=== PATIENT | female | born 1980 | race Caucasian/White ===

== ENCOUNTER 2018-04-30 13:43 | Inpatient (IN) ==
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
[2018-04-30 14:23] LABS: Basophils % 0.2 %; Hemoglobin 14.5 g/dL (11.5-15.4); Immature Granulocytes % 0.6 % (0-4); Lymphocytes # 1.6 K/mcL (0.6-4.6); Lymphocytes % 7.8 %; Mean Corpuscular HGB Conc 34.5 g/dL (31.6-35.5); Mean Corpuscular Hemoglobin 30.5 pg (28.0-33.3); Mean Corpuscular Volume 88.4 fL (83.0-100.0); Mean Platelet Volume 10.6 fL (9.4-12.4); Monocytes # 1.4 K/mcL (0.0-1.3); Monocytes % 6.7 %; Neutrophils # 17.8 K/mcL (1.6-8.9); Platelet Count 360 K/mcL (140-400); Red Blood Count 4.75 M/mcL (3.82-4.97); Red Cell Distribution Width 11.9 % (11.5-14.5); Segmented Neutrophils % 84.7 %
[2018-04-30 15:53] LABS: Acetaminophen < 10 mcg/mL (10-20); BUN/Creatinine Ratio 25 (6-26); Blood Urea Nitrogen 14 mg/dL (6-20); Calcium 10.2 mg/dL (8.6-10.3); Carbon Dioxide 20 mEq/L (23-29); Chloride 106 mEq/L (98-107); Ethanol < 10 mg/dL (Less than 10); Glucose 139 mg/dL (70-105); Osmolality,Calculated 285 (280-300); Potassium 3.3 mEq/L (3.5-5.1); Salicylate < 2.5 mg/dL (15.0-30.0); Sodium 136 mEq/L (136-145); eGFR For Non-African Americans > 60 (> 60)
[2018-04-30 16:56] LABS: Bilirubin,Urine Negative (Negative); Blood,Urine Negative (Negative); Clarity,Urine Clear (Clear); Color,Urine Yellow (Yellow); Glucose,Urine (UA) 100 mg/dL (Normal); Ketones,Urine Negative (Negative); Leukocyte Esterase,Urine Negative (Negative); Nitrite,Urine Negative (Negative); Protein,Urine Negative (Neg-Trace); Specific Gravity,Urine 1.021 (1.010-1.025); Urobilinogen,Urine Normal (Normal)
[2018-04-30 17:16] LABS: Amphetamine Screen,Urine Negative ng/mL (Cutoff=1000); Barbiturate Screen,Urine Negative ng/mL (Cutoff=200); Benzodiazepines Screen,Urine Negative ng/mL (Cutoff=200); Cannabinoid Screen,Urine Positive ng/mL (Cutoff = 50); Cocaine Screen,Urine Negative ng/mL (Cutoff= 300); Opiate Screen,Urine Negative ng/mL (Cutoff=300); Phencyclidine Screen,Urine Negative ng/mL (Cutoff=25)
[2018-04-30] MEDS ORDERED: Haloperidol Lactate 5 MG/ML VIAL IM ONE (17:45)
[2018-04-30] MEDS ORDERED: *HR* LORazepam 2 MG/ML VIAL IM ONE (17:45)
[2018-04-30] MEDS ORDERED: Ziprasidone injection 20 MG/ML VIAL IM ONE (17:59)
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
[2018-04-30] MEDS ORDERED: Mag Hydrox/Al Hydrox/Simeth 30 ML UDC PO PRN (23:22)
[2018-04-30] MEDS ORDERED: *HR* LORazepam 2 MG/ML VIAL IM PRN (23:22)
[2018-04-30] MEDS ORDERED: MOM Conc 10 ML UD.LIQ PO PRN (23:22)
[2018-04-30] MEDS ORDERED: Haloperidol Lactate 5 MG/ML VIAL IM PRN (23:22)
[2018-04-30 23:54] LABS: Thyroid Stimulating Hormone 0.678 mcIU/mL (0.340-5.600)
--- NOTE | 2018-05-01 10:47 | Psychiatry History & Physical ---
Date of Encounter: 05/01/18 Time of Encounter: 09:45 History of Present Illness Patient Stated Chief Complaint: Acute psychosis, manic episode, altered mental status Medicare Admission Attestation: For traditional Medicare patients the provided hospital inpatient services are reasonable and necessary and in the case of services not specified as inpatient-only under 42 CFR 419.22 (n), that they are appropriately provided as inpatient services in accordance 42 CFR 412.3. For Critical Access Hospital the patient may reasonably be expected to be discharged or transferred to a hospital within 96 hours after admission to the Critical Access Hospital. Admitted From: Emergency Dept History of Present Illness: Ms. Li is a 37 year old female admitted from the emergency department for evaluation off manic and delusional behavior. Patient was brought in by police when she was asking for directions and was feeling lost. Her speech was disorganized and making comments of delusional content she said that she is in the [place]. Information available at this time. Minimal and and confusing. Nursing staff was able to obtain records from [facility]. 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 She was on the hospital in December 2017 and has not been followed up as outpatient and currently on no medication. Patient was minimally cooperative, her speech was disorganized with flight of ideas and delusional content and poor history. UDS was positive for THC. Past Med Surg Social Fam HX - Past Medical History Medical history: thyroid disease, other - Past Psychiatric History Psychiatric history: Reports: bipolar, previous psychiatric hospitalization Past psychiatric history details: Hospitalization at [facility] showing 2017 - Past Surgical History Surgical History: orthopedic, other - Social History Smoking Status: Current every day smoker Smokeless Tobacco Status: No Alcohol use: none Drug use: marijuana - Family History Mother Living Status: Still Living Hx Family Cardiac Disorders: Yes Hx Family Endocrine Disorder: Yes Father Living Status: Still Living Hx Family GI Disorders: Yes Medications & Allergies DULoxetine [Cymbalta] 30 mg PO DAILY 11/08/17 [History] Divalproex (24 HR) [Depakote ER (24 HR)] 250 mg PO HS 11/08/17 [History] Allergy/AdvReac Type Severity Reaction Status Date / Time No Known Allergies Allergy Verified 04/29/18 18:54 Review of Systems Psychiatric: Reports: confusion, mood swings, other (Manic episode) Exam - HEENT Head exam IM: Present: atraumatic Eye exam IM: Present: EOMI, normal appearance, PERRL ENT exam IM: Present: normal exam - Neurological Neurological exam: Present: CN II-XII intact - Respiratory Respiratory exam IM: Present: CTAB - GI/Abdominal GI/Abdominal exam IM: Present: normal bowel sounds, soft. Absent: tenderness - Extremities Extremities exam IM: Present: full ROM - Skin Skin exam IM: Present: dry, warm - Constitutional Vitals: Temp Pulse Resp BP Pulse Ox 98.4 F 68 16 81/42 99 05/01/18 00:40 05/01/18 00:40 05/01/18 00:40 05/01/18 00:40 04/30/18 14:12 General appearance: age & developmentally appropriate, well-nourished, unkempt, disheveled, bizarre, thin - Musculoskeletal Gait: normal Station: relaxed Strength & Tone: normal for patient - Psychiatric Patient Orientation: Yes Person, Yes Time, Yes Place Level of alertness: Alert Behavior: calm, cooperative, distractible, dramatic Psychomotor activity: Normal Eye Contact: Minimal Contact Mood Description: Euthymic/stable, Labile Affect description: congruent with mood, labile Speech Volume: Normal Speech pattern: disorganized, garbled Language & Vocabulary: consistent with education, limited Thought Process: Linear, Goal Oriented, Disorganized, Racing Thought Content: No Suicidal ideation, No Homicidal ideation, No Overt delusions, Yes Paranoid delusion Perceptual Disturbances: No Auditory hallucinations, No Visual hallucinations Attention Span Ability: Capable of Focused Attention Memory Description: Grossly Intact Patient Reliability: Questionable Historian Fund of knowledge: Yes abstraction ability, Yes average, Yes aware of current events Intelligence Estimate: Average Judgment: Limited Insight: Partial Results - Drug Levels and Toxicology Drug Levels and Toxicology: Drug Levels and Toxicity 04/30/18 04/30/18 15:21 16:51 Urine Opiates Screen Negative Acetaminophen < 10 L Ur Barbiturates Screen Negative Ur Phencyclidine Scrn Negative Ur Amphetamines Screen Negative U Benzodiazepines Scrn Negative Urine Cocaine Screen Negative U Marijuana (THC) Screen Positive H Ethyl Alcohol < 10 - Labs Labs: Laboratory Last Values WBC 21.0 K/mcL (4.3-11.1) H 04/30/18 14:14 RBC 4.75 M/mcL (3.82-4.97) 04/30/18 14:14 Hgb 14.5 g/dL (11.5-15.4) 04/30/18 14:14 Hct 42.0 % (35.3-44.9) 04/30/18 14:14 MCV 88.4 fL (83.0-100.0) 04/30/18 14:14 MCH 30.5 pg (28.0-33.3) 04/30/18 14:14 MCHC 34.5 g/dL (31.6-35.5) 04/30/18 14:14 RDW 11.9 % (11.5-14.5) 04/30/18 14:14 Plt Count 360 K/mcL (140-400) 04/30/18 14:14 MPV 10.6 fL (9.4-12.4) 04/30/18 14:14 Immature Gran % 0.6 % (0-4) 04/30/18 14:14 Seg Neutrophils % 84.7 % 04/30/18 14:14 Lymphocytes % 7.8 % 04/30/18 14:14 Monocytes % 6.7 % 04/30/18 14:14 Eosinophils % 0.0 % 04/30/18 14:14 Basophils % 0.2 % 04/30/18 14:14 Neutrophils # 17.8 K/mcL (1.6-8.9) H 04/30/18 14:14 Lymphocytes # 1.6 K/mcL (0.6-4.6) 04/30/18 14:14 Monocytes # 1.4 K/mcL (0.0-1.3) H 04/30/18 14:14 Eosinophils # 0.0 K/mcL (0.0-0.6) 04/30/18 14:14 Basophils # 0.0 K/mcL (0.0-0.2) 04/30/18 14:14 Sodium 136 mEq/L (136-145) 04/30/18 15:21 Potassium 3.3 mEq/L (3.5-5.1) L 04/30/18 15:21 Chloride 106 mEq/L (98-107) 04/30/18 15:21 Carbon Dioxide 20 mEq/L (23-29) L 04/30/18 15:21 BUN 14 mg/dL (6-20) 04/30/18 15:21 Creatinine 0.57 mg/dL (0.60-1.20) L 04/30/18 15:21 Est GFR ( Amer) > 60 (> 60) 04/30/18 15:21 Est GFR (Non-Af Amer) > 60 (> 60) 04/30/18 15:21 BUN/Creatinine Ratio 25 (6-26) 04/30/18 15:21 Glucose 139 mg/dL (70-105) H 04/30/18 15:21 Calculated Osmolality 285 (280-300) 04/30/18 15:21 Calcium 10.2 mg/dL (8.6-10.3) 04/30/18 15:21 TSH 0.678 mcIU/mL (0.340-5.600) 04/30/18 15:21 Urine Color Yellow (Yellow) 04/30/18 16:51 Urine Clarity Clear (Clear) 04/30/18 16:51 Urine pH 6.0 pH Units (5.0-8.0) 04/30/18 16:51 Ur Specific Campbell 1.021 (1.010-1.025) 04/30/18 16:51 Urine Protein Negative mg/dL (Neg-Trace) 04/30/18 16:51 Urine Glucose (UA) 100 mg/dL (Normal) H 04/30/18 16:51 Urine Ketones Negative mg/dL (Negative) 04/30/18 16:51 Urine Blood Negative (Negative) 04/30/18 16:51 Urine Nitrite Negative (Negative) 04/30/18 16:51 Urine Bilirubin Negative (Negative) 04/30/18 16:51 Urine Urobilinogen Normal mg/dL (Normal) 04/30/18 16:51 Ur Leukocyte Esterase Negative (Negative) 04/30/18 16:51 Salicylates < 2.5 mg/dL (15.0-30.0) L 04/30/18 15:21 Urine Opiates Screen Negative ng/mL (Evkhhj=485) 04/30/18 16:51 Acetaminophen < 10 mcg/mL (10-20) L 04/30/18 15:21 Ur Barbiturates Screen Negative ng/mL (Yszmhr=498) 04/30/18 16:51 Ur Phencyclidine Scrn Negative ng/mL (Cutoff=25) 04/30/18 16:51 Ur Amphetamines Screen Negative ng/mL (Yvkmjn=0767) 04/30/18 16:51 U Benzodiazepines Scrn Negative ng/mL (Jhqxjq=371) 04/30/18 16:51 Urine Cocaine Screen Negative ng/mL (Cutoff= 300) 04/30/18 16:51 U Marijuana (THC) Screen Positive ng/mL (Cutoff = 50) H 04/30/18 16:51 Ur Drug Screen Interp See Below 04/30/18 16:51 Ethyl Alcohol < 10 mg/dL (Less than 10) 04/30/18 15:21 Specimen Rejected Hemolyzed 04/30/18 14:53 Assessment and Plan (1) Bipolar disorder, manic, moderate Current visit: No Status: Acute Plan: Admit inpatient for safety and stabilization, Close observation, Suicide Precautions per unit protocol, Encourage participation in unit milieu, Group Therapy, Monitor sleep, Monitor appetite Risks, benefits, side effects, alternatives discussed w/pt: No (Patient refused taking medication) Patient agreeable to treatment: No Estimated Length of Stay (Days): 7
[2018-05-01] MEDS: Nicotine 21 MG PATCH.TD24 TD SCH (13:25)
[2018-05-01] MEDS: *HR* LORazepam 1 MG TABLET PO PRN (18:38)
[2018-05-01] MEDS: traZODone 50 MG TABLET PO PRN (20:29)
--- NOTE | 2018-05-01 22:53 | Internal Medicine Consult Note ---
Addendum entered and electronically signed by Barry Shin MD 05/02/18 20:33: I saw and evaluated the patient. I reviewed the nurse practitioner's note, performed my own physical examination and agree with findings and plan as documented in the nurse practitioners note. Patient seen and examined on 05/02/18. Re-evaluated this morning. Chest pain resolved. Has cough, but lung sounds clear. If symptoms continue, could consider chest x-ray. Patient had no further issues or concerns. Original Note: Date of Encounter: 05/01/18 Time of Encounter: 22:15 - Assessment and plan (1) Chest pain Current Visit: Yes Status: Acute Assessment and plan: Chest pain currently resolved. EKG and troponin ordered. Please call with any new problems or concerns. Qualifiers: Chest pain type: unspecified Qualified Code(s): R07.9 - Chest pain, unspecified - Time Spent With Patient Total time spent is greater than 50% in coordination of care (as documented) at patient's floor/unit and/or counseling patient: Internal Medicine - CN: HPI - Data of Consult Consult date: 05/01/18 Requesting Physician: Christopher Arriaga MD - Consult Narrative Reason for consult: Chest Pain History of present illness: Ms. Li is a 37 year old female currently admitted to [facility] Psychiatric unit. Consulted by primary team due to patient complaining of chest pain that has since resolved. Patient was sleeping upon my arrival to the unit and had to be awaken by nurse. Patient reports 2 hour duration of centralized "pressure like stabbing" chest pain radiating to her left arm that occurred earlier today. Pain was accompanied by nausea and one episode of vomiting. Denies shortness of breath or diaphoresis. States she has had similar episodes in the past, thinks it was related to angina and relieved with nitroglycerin though she states she has not had her nitroglycerin medication for a very long time. Last similar episode was around 3 months ago which resolved on its own as it did today. Past Med Surg Social Fam HX - Past Medical History Medical history: thyroid disease, other Additional medical history: PTSD, Hashimotos, Fibromyalgia Psychiatric history: bipolar, previous psychiatric hospitalization - Past Surgical History Surgical History: orthopedic, other Additional surgical history: D & C, removed lump from left breast. - Social History Smoking Status: Current every day smoker Smokeless Tobacco Status: No Alcohol use: none Drug use: marijuana - Family History Mother Living Status: Still Living Hx Family Cardiac Disorders: Yes Hx Family Endocrine Disorder: Yes Father Living Status: Still Living Hx Family GI Disorders: Yes Internal Medicine - CN: Meds DULoxetine [Cymbalta] 30 mg PO DAILY 11/08/17 [History] Divalproex (24 HR) [Depakote ER (24 HR)] 250 mg PO HS 11/08/17 [History] Allergy/AdvReac Type Severity Reaction Status Date / Time No Known Allergies Allergy Verified 04/29/18 18:54 Hospitalist - CN: Exam - Constitutional Vitals: Temp Pulse Resp BP Pulse Ox 97.8 F 88 18 111/73 97 05/01/18 21:08 05/01/18 21:08 05/01/18 21:08 05/01/18 21:08 05/01/18 09:00 Exam: General: Drowsy. Cooperative. Cardiovascular:Normal S1 & S2, no rubs, murmurs or gallops. No JVD. Pulse regular. Lungs:Normal breath sounds, no wheezes or crackles. Internal Medicine - CN: Reslt - Labs CBC & Chem 7: 04/30/18 14:14 04/30/18 15:21 Consult Discharge Plan - Plan Referrals: NONE,PCP [Primary Care Provider] -
[2018-05-02] MEDS: Nicotine 21 MG PATCH.TD24 TD SCH (08:26)
--- NOTE | 2018-05-02 11:37 | Internal Med Progress Note ---
Hospitalist Progress Note - Encounter Date of Encounter: 05/02/18 Time of Encounter: 11:36 - Subjective Interval History: Pt complaining of dry mouth. She denies CP SOB, fever, chills, N/V or diarrhea. She denies abdominal pain. - Exam Vitals: Temp Pulse Resp BP Pulse Ox 98.3 F 78 16 102/69 96 05/02/18 09:00 05/02/18 09:00 05/02/18 09:00 05/02/18 09:00 05/02/18 09:00 Exam: General: Drowsy. Cooperative. HEENT: Head normocephalic, ears clear TPM and visible cone of light, oral mucosa pink and moist. Cardiovascular:Normal S1 & S2, no rubs, murmurs or gallops. No JVD. Pulse regular. Lungs:Normal breath sounds, no wheezes or crackles. Abdomen: soft non-tender, no-distended, normal bowel sounds. Extremity: No pain, edema, or rash. Skin: Warm, dry, no mass or bruises. - Assessment and Plan (1) Chest pain Current Visit: Yes Status: Acute Assessment and Plan: Chest pain currently resolved. EKG and troponin ordered. Please call with any new problems or concerns. Will follow as needed. (2) Leukocytosis Current Visit: Yes Status: Acute Assessment and Plan: Pt's blood was hemolyzed. Repeat CBC showing WBC 8.5. No indication for antibiotic. (3) Hypokalemia Current Visit: Yes Status: Acute Assessment and Plan: Replaced and corrected. DVT Prophylaxis: Pt ambulatory - Summary of Assessment and Plan Summary of Assessment and Plan: Ms. Li is a 37 year old female currently admitted to [facility] Psychiatric unit. Consulted by primary team due to patient complaining of chest pain that has since resolved. Patient was sleeping upon my arrival to the unit and had to be awaken by nurse. Patient reports 2 hour duration of centralized "pressure like stabbing" chest pain radiating to her left arm that occurred earlier today. Pain was accompanied by nausea and one episode of vomiting. Denies shortness of breath or diaphoresis. States she has had similar episodes in the past, thinks it was related to angina and relieved with nitroglycerin though she states she has not had her nitroglycerin medication for a very long time. Last similar episode was around 3 months ago which resolved on its own as it did today. - Time Spent with Patient Total time spent is greater than 50% in coordination of care (as documented) at patient's floor/unit and/or counseling patient: less than 15 minutes Plan of Care Discussed with: patient Internal Medicine: Result - Labs CBC & Chem 7: 05/02/18 13:23 05/02/18 16:09 Labs: Cardiac Enzymes 05/01/18 Range/Units 23:30 Troponin I < 0.03 (< 0.04) ng/mL - VTE Reasons for not Prescribing Prophylaxis: Treatment not Indicated - Low risk for VTE Consult Discharge Plan - Plan Referrals: [facility] [Outside] - 05/13/18 10:30 am (The above appointment is with the nurse, Amirah. You will also see Charisma Contreras for outpatient psychiatric assessment and medication management services on 05/19/2018 at 9:20 AM.) Dorene Baker D.O. [Non-Partnered Physician] - 05/09/18 2:30 pm (The above appointment is with Dr. Baker for neurology follow-up.) (1) Chest pain Qualifiers: Chest pain type: unspecified Qualified Code(s): R07.9 - Chest pain, unspecified
[2018-05-02] MEDS: Acetaminophen 325 MG TABLET PO PRN ×2 (12:04→20:38)
[2018-05-02] MEDS ORDERED: *HR* Promethazine 25 MG/ML VIAL IM ONE (12:31)
--- NOTE | 2018-05-02 13:05 | Psychiatry Progress Note ---
Date of Encounter: 05/02/18 Time of Encounter: 13:00 Subjective Interval history: ID the patient's a 37-year-old woman. Chief complaint: I have a terrible headache and I am throwing up. History of present illness: The patient was seen when having a migraine headache. She laid on the couch the office and had the lights turned down and proceeded to spit in 2 or attempt to throw up into a trash can. She reported terrible migraine headaches and reports previous treatment. This is noted in the outside records which I reviewed. She has a Dr. Prince at [facility] who is her headache and migraine specialist. The patient did not want to be on sedating medicine she said this is the reason that she has stopped Depakote and Seroquel the patient has stated that she wants a medicine that will help her but that she does not want to be too sedating. The patient will be treated with Phenergan IM today and efforts to review the records and trying to nonsedating medicine for this. I reviewed both the prior history of posttraumatic stress disorder and bipolar disorder as noted by one psychiatrist in 2016. 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 The patient clearly had neurologic findings consistent with that. However this may not explain her current presentation. The patient has a common-law and we will attempt to contact her and maybe hold family meeting to identify the patient's diagnosis and treatment plan options. It appears the patient's been noncompliant with treatment or intolerant of it. Review of Systems Constitutional: Reports: weight change Eyes: Reports: vision change Ears, Nose, Throat: Reports: throat pain Cardiovascular: Reports: chest pain Respiratory: Reports: sputum production Gastrointestinal: Reports: nausea, vomiting Genitourinary male: Reports: urgency Genitourinary female: Reports: urgency Musculoskeletal: Reports: myalgia Neurological: Reports: headache Psychiatric: Reports: depression, abnormal sleep pattern, suicidal ideation, confusion, mood swings, other (Manic episode) Endocrine: Reports: fatigue Results - Vital Signs Vital Signs: Temp Pulse Resp BP Pulse Ox 98.3 F 78 16 102/69 96 05/02/18 09:00 05/02/18 09:00 05/02/18 09:00 05/02/18 09:00 05/02/18 09:00 - Labs Labs: Laboratory Results - last 24 hr 05/01/18 23:30 Troponin I < 0.03 Assessment and Plan (1) Migraine headache Current visit: Yes Status: Acute Plan: Continue hospitalization, Close observation, Monitor appetite Risks, benefits, side effects, alternatives discussed w/pt: Yes Patient agreeable to treatment: Yes Qualifiers: Migraine type: abdominal Intractability: not intractable Qualified Code(s): G43.D0 - Abdominal migraine, not intractable (2) Bipolar disorder, manic, moderate Current visit: No Status: Acute Plan: Continue hospitalization, Close observation, Suicide Precautions per unit protocol, Encourage participation in unit milieu, Group Therapy Risks, benefits, side effects, alternatives discussed w/pt: No (Patient refused taking medication) Patient agreeable to treatment: No (3) Chronic post-traumatic stress disorder (PTSD) Current visit: No Status: Acute Plan: Continue hospitalization, Close observation, Suicide Precautions per unit protocol, Encourage participation in unit milieu, Family/Supportive other meeting Risks, benefits, side effects, alternatives discussed w/pt: Yes Patient agreeable to treatment: Yes (4) History of Domenic thyroiditis Current visit: No Status: Acute Plan: Continue hospitalization, Other Risks, benefits, side effects, alternatives discussed w/pt: Yes Patient agreeable to treatment: Yes Consult Discharge Plan - Plan Referrals: NONE,PCP [Primary Care Provider] - Psychiatry Exam - Constitutional Vitals: Temp Pulse Resp BP Pulse Ox 98.3 F 78 16 102/69 96 05/02/18 09:00 05/02/18 09:00 05/02/18 09:00 05/02/18 09:00 05/02/18 09:00 General appearance: unkempt, disheveled, malodorous - Musculoskeletal Gait: slow Station: stooped Strength & Tone: normal for patient - Psychiatric Patient Orientation: Yes Person, Yes Time, Yes Place Level of alertness: Alert Behavior: calm, dramatic Psychomotor activity: Slowed Eye Contact: Minimal Contact Mood Description: Anxious, Irritable Affect description: congruent with mood Speech Volume: Normal Speech pattern: repetetive Language & Vocabulary: consistent with education Thought Process: Tangential Thought Content: Yes Suicidal ideation Attention Span Ability: Unable to Sustain Attention Memory Description: Remote Intact Patient Reliability: Questionable Historian Fund of knowledge: Yes average Intelligence Estimate: Average Judgment: Limited Insight: Minimal
[2018-05-02 14:16] LABS: Basophils # 0.1 K/mcL (0.0-0.2); Basophils % 1.2 %; Eosinophils # 0.1 K/mcL (0.0-0.6); Eosinophils % 1.3 %; Hematocrit 39.9 % (35.3-44.9); Hemoglobin 13.4 g/dL (11.5-15.4); Immature Granulocytes % 0.8 % (0-4); Lymphocytes % 35.8 %; Mean Corpuscular HGB Conc 33.6 g/dL (31.6-35.5); Mean Corpuscular Hemoglobin 30.4 pg (28.0-33.3); Mean Corpuscular Volume 90.5 fL (83.0-100.0); Mean Platelet Volume 11.1 fL (9.4-12.4); Monocytes # 0.9 K/mcL (0.0-1.3); Monocytes % 11.1 %; Neutrophils # 4.2 K/mcL (1.6-8.9); Platelet Count 303 K/mcL (140-400); Red Blood Count 4.41 M/mcL (3.82-4.97); Red Cell Distribution Width 11.9 % (11.5-14.5); Segmented Neutrophils % 49.8 %
[2018-05-02 16:48] LABS: BUN/Creatinine Ratio 19 (6-26); Blood Urea Nitrogen 11 mg/dL (6-20); Calcium 9.1 mg/dL (8.6-10.3); Carbon Dioxide 27 mEq/L (23-29); Chloride 105 mEq/L (98-107); Glucose 106 mg/dL (70-105); Osmolality,Calculated 286 (280-300); Potassium 3.8 mEq/L (3.5-5.1); Sodium 138 mEq/L (136-145); eGFR For Non-African Americans > 60 (> 60)
[2018-05-02] MEDS: traZODone 50 MG TABLET PO PRN (20:38)
[2018-05-02] MEDS: hydrOXYzine pamoate 25 MG CAPSULE PO PRN (20:38)
[2018-05-02] MEDS: *HR* LORazepam 1 MG TABLET PO PRN (20:39)
[2018-05-02] MEDS ORDERED: Pregabalin 50 MG CAPSULE PO SCH (21:00)
[2018-05-03] MEDS: Nicotine 21 MG PATCH.TD24 TD SCH (08:44)
--- NOTE | 2018-05-03 14:34 | Psychiatry Progress Note ---
Date of Encounter: 05/03/18 Time of Encounter: 14:00 Subjective Interval history: ID the patient is a 37-year-old woman. The patient agreed to having us talk to her spouse. Her spouse's name Tasneem Li. Chief complaint: I want to go home maybe for an hour to served dinner to everyone. History of present illness: The patient has been able to talk with her spouse. The history can be summarized thusly. The patient was seen and evaluated. She is currently on no medicine she has been noncompliant with oral medicine she will sometimes complained of nausea. The patient has been on in [place] but felt very slowed down by. The patient has been on quetiapine but is stopped taking it. Patient has a documented history of PTSD from 2016. The patient has a history of encephalopathy. This was not felt to be associated with her presentation of karlos and since the diagnosis of encephalopathy she has been even worse the patient has been noncompliant with her treatment. He is supposed to see [facility]. The patient has all the features of DIGFAST. Patient has poor insight. She has grandiose delusions. She has been religiously preoccupied. The patient was tested using the [employer]. And the complete story. She was able to show reasoning. The patient was tested for frontal release signs she did not show any significant frontal release signs. She and is intrusive and excessively talkative. Additional history of noncompliance was given by spouse. Karlos symptoms were agreed to in the hospital. The patient pressed for discharge soon. Review of Systems Psychiatric: Reports: depression, abnormal sleep pattern, suicidal ideation, confusion, mood swings, other (Manic episode) Results - Vital Signs Vital Signs: Temp Pulse Resp BP Pulse Ox 97.6 F 84 18 106/76 96 05/03/18 08:45 05/03/18 08:45 05/03/18 08:45 05/03/18 08:45 05/03/18 08:45 - Labs Labs: Laboratory Results - last 24 hr 05/02/18 05/02/18 13:23 16:09 D-Dimer 531 H Sodium 138 Potassium 3.8 Chloride 105 Carbon Dioxide 27 BUN 11 Creatinine 0.57 L Est GFR ( Amer) > 60 Est GFR (Non-Af Amer) > 60 BUN/Creatinine Ratio 19 Glucose 106 H Calculated Osmolality 286 Calcium 9.1 - Impressions ITS Impressions Chest X-Ray 05/02/18 11:32 IMPRESSION: No acute cardiopulmonary disease. D/ / Tyrone Osullivan MD / Tyrone Osullivan MD Interpreting Provider: Tyrone Osullivan MD Assessment and Plan (1) Migraine headache Current visit: Yes Status: Acute Risks, benefits, side effects, alternatives discussed w/pt: Yes Patient agreeable to treatment: Yes Qualifiers: Migraine type: abdominal Intractability: not intractable Qualified Code(s): G43.D0 - Abdominal migraine, not intractable (2) Chronic post-traumatic stress disorder (PTSD) Current visit: No Status: Acute Plan: Continue hospitalization, Close observation, Suicide Precautions per unit protocol, Monitor appetite Risks, benefits, side effects, alternatives discussed w/pt: Yes Patient agreeable to treatment: Yes (3) History of Domenic thyroiditis Current visit: No Status: Acute Risks, benefits, side effects, alternatives discussed w/pt: Yes Patient agreeable to treatment: Yes (4) 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 Current visit: Yes Status: Acute Plan: Continue hospitalization, Close observation, Suicide Precautions per unit protocol, Encourage participation in unit milieu, Group Therapy, Monitor sleep, Secure weapons, Family/Supportive other meeting Risks, benefits, side effects, alternatives discussed w/pt: Yes Patient agreeable to treatment: Yes (5) Patient's noncompliance with other medical treatment and regimen Current visit: Yes Status: Acute Plan: Continue hospitalization, Close observation, Suicide Precautions per unit protocol, Encourage participation in unit milieu, Group Therapy, Monitor sleep, Monitor appetite, Secure weapons, Family/Supportive other meeting Risks, benefits, side effects, alternatives discussed w/pt: Yes Patient agreeable to treatment: Yes (6) Bipolar disorder, current episode depressed, severe, with psychotic features Current visit: Yes Status: Acute Plan: Continue hospitalization, Close observation, Suicide Precautions per unit protocol, Encourage participation in unit milieu, Group Therapy, Monitor sleep, Family/Supportive other meeting Risks, benefits, side effects, alternatives discussed w/pt: Yes Patient agreeable to treatment: Yes Consult Discharge Plan - Plan Referrals: [facility] [Outside] - 05/13/18 10:30 am (The above appointment is with the nurse, Amirah. You will also see [facility]isma Diane for outpatient psychiatric assessment and medication management services on 05/19/2018 at 9:20 AM.) Dorene Baker D.O. [Non-Partnered Physician] - 05/09/18 2:30 pm (The above appointment is with Dr. Baker for neurology follow-up.) Psychiatry Exam - Constitutional Vitals: Temp Pulse Resp BP Pulse Ox 97.6 F 84 18 106/76 96 05/03/18 08:45 05/03/18 08:45 05/03/18 08:45 05/03/18 08:45 05/03/18 08:45 General appearance: age & developmentally appropriate, well-groomed, well- nourished - Musculoskeletal Gait: normal Station: shaky Strength & Tone: normal for patient - Psychiatric Patient Orientation: Yes Person, Yes Time, Yes Place Level of alertness: Alert Behavior: cooperative, distractible, impulsive, talkative, dramatic Psychomotor activity: Increased Eye Contact: Maintains Eye Contact Mood Description: Elevated, Euphoric, Labile, Irritable Affect description: labile, incongruent with mood Speech Volume: Excessive Variation Speech pattern: normal rate, normal rhythm, normal tone, fluent, spontaneous, disorganized, rambling, pressured Language & Vocabulary: consistent with education Thought Process: Linear, Goal Oriented, Loose Associations, Tangential, Flight of Ideas, Racing Thought Content: No Suicidal ideation, No Homicidal ideation, No Overt delusions, Yes Preoccupation, Yes Hoahaoism delusion, Yes Grandiose delusion Perceptual Disturbances: No Auditory hallucinations, No Visual hallucinations Attention Span Ability: Unable to Sustain Attention Memory Description: Grossly Intact Patient Reliability: Not Reliable Historian Fund of knowledge: Yes abstraction ability, Yes aware of current events Intelligence Estimate: Average Judgment: Limited Insight: Minimal
[2018-05-03] MEDS: traZODone 50 MG TABLET PO PRN (21:48)
[2018-05-03] MEDS: *HR* LORazepam 1 MG TABLET PO PRN (21:48)
[2018-05-03] MEDS: hydrOXYzine pamoate 25 MG CAPSULE PO PRN (21:48)
[2018-05-03] MEDS: Acetaminophen 325 MG TABLET PO PRN (21:48)
[2018-05-03] MEDS: ARIPiprazole 5 MG TABLET PO SCH (21:48)
[2018-05-04] MEDS: Acetaminophen 325 MG TABLET PO PRN (09:27)
[2018-05-04] MEDS: Nicotine 21 MG PATCH.TD24 TD SCH (09:28)
--- NOTE | 2018-05-04 13:38 | Psychiatry Progress Note ---
Date of Encounter: 05/04/18 Time of Encounter: 12:00 Subjective Interval history: D the patient's a 37-year-old female. Chief complaint: I am doing much better. History of present illness the patient has tolerated 5 mg of Abilify. Last night she was up late cleaning. She has been intrusive and demanding but overall improved in fact today she apologized for some of her previous insistence. The patient spoke to her spouse on the phone. They agreed on a general treatment plan. The patient's primary and predominant disorder is bipolar disorder manic severe with psychosis. The patient's other condition his PTSD she has a history of seizures and encephalopathy. The patient also recei [place] an IM injection for migraine headache today but overall the patient feels she is better and that she can go home patient's spouse spoke on the phone was concerned about the patient's compliance. The patient agreed to a dose of SGOT of 441 try to obtain this given injection Review of Systems Psychiatric: Reports: depression, abnormal sleep pattern, suicidal ideation, confusion, mood swings, other (Manic episode) Results - Vital Signs Vital Signs: Temp Pulse Resp BP Pulse Ox 98.3 F 99 18 88/57 98 05/04/18 09:00 05/04/18 09:00 05/04/18 09:00 05/04/18 09:00 05/04/18 09:00 - Impressions ITS Impressions Chest X-Ray 05/02/18 11:32 IMPRESSION: No acute cardiopulmonary disease. D/ / Tyrone Osullivan MD / Tyrone Osullivan MD Interpreting Provider: Tyrone Osullivan MD Assessment and Plan (1) Migraine headache Current visit: Yes Status: Acute Risks, benefits, side effects, alternatives discussed w/pt: Yes Patient agreeable to treatment: Yes Qualifiers: Migraine type: abdominal Intractability: not intractable Qualified Code(s): G43.D0 - Abdominal migraine, not intractable (2) Chronic post-traumatic stress disorder (PTSD) Current visit: No Status: Acute Risks, benefits, side effects, alternatives discussed w/pt: Yes Patient agreeable to treatment: Yes (3) History of Domenic thyroiditis Current visit: No Status: Acute Plan: Other Risks, benefits, side effects, alternatives discussed w/pt: Yes Patient agreeable to treatment: Yes (4) 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 Current visit: Yes Status: Acute Plan: Continue hospitalization, Close observation, Suicide Precautions per unit protocol, Encourage participation in unit milieu, Family/Supportive other meeting Risks, benefits, side effects, alternatives discussed w/pt: Yes Patient agreeable to treatment: Yes (5) Patient's noncompliance with other medical treatment and regimen Current visit: Yes Status: Acute Plan: Continue hospitalization, Close observation, Suicide Precautions per unit protocol, Encourage participation in unit milieu, Family/Supportive other meeting Risks, benefits, side effects, alternatives discussed w/pt: Yes Patient agreeable to treatment: Yes (6) Bipolar disorder, current episode depressed, severe, with psychotic features Current visit: Yes Status: Acute Plan: Continue hospitalization, Close observation, Suicide Precautions per unit protocol, Encourage participation in unit milieu, Group Therapy Risks, benefits, side effects, alternatives discussed w/pt: Yes Patient agreeable to treatment: Yes Consult Discharge Plan - Plan Referrals: [facility] [Outside] - 05/13/18 10:30 am (The above appointment is with the nurseAmirah. You will also see [facility] Contreras for outpatient psychiatric assessment and medication management services on 05/19/2018 at 9:20 AM.) Dorene Baker D.O. [Non-Partnered Physician] - 05/09/18 2:30 pm (The above appointment is with Dr. Baker for neurology follow-up.) Steff Wren [Advanced Practice Nurse] - (The above appointment is with Steff Wren CNP, at Primary Care within [facility]. This appointment is to establish you with a primary care provider. Please arrive 15 minutes early to complete paperwork. Please bring your insurance card, photo ID and list of current medications to your first appointment. The above appointment(s) reflects first availability. You may contact the office regularly to check for cancellations that may allow you to be seen sooner.) Psychiatry Exam - Constitutional Vitals: Temp Pulse Resp BP Pulse Ox 98.3 F 99 18 88/57 98 05/04/18 09:00 05/04/18 09:00 05/04/18 09:00 05/04/18 09:00 05/04/18 09:00 General appearance: age & developmentally appropriate, well-groomed, well- nourished, thin - Musculoskeletal Gait: normal Station: other Strength & Tone: normal for patient - Psychiatric Patient Orientation: Yes Person, Yes Time, Yes Place Level of alertness: Alert Behavior: calm, cooperative Psychomotor activity: Increased Eye Contact: Maintains Eye Contact Mood Description: Euphoric, Expansive, Labile, Irritable Affect description: congruent with mood, labile, inappropriate to situation Speech Volume: Excessive Variation Speech pattern: normal rate, normal rhythm, normal tone, fluent, spontaneous Language & Vocabulary: consistent with education Thought Process: Linear, Goal Oriented, Tangential, Flight of Ideas Thought Content: No Suicidal ideation, No Homicidal ideation, No Overt delusions, Yes Paranoid delusion, Yes Grandiose delusion, Yes Somatic delusion Perceptual Disturbances: No Auditory hallucinations, No Visual hallucinations Attention Span Ability: Capable of Focused Attention Memory Description: Grossly Intact Patient Reliability: Questionable Historian Fund of knowledge: Yes abstraction ability, Yes aware of current events Intelligence Estimate: Average Judgment: Fair Insight: Partial
[2018-05-04] MEDS ORDERED: Acetaminophen/Butalbital/CaffeineTABLET PO ONE (15:57)
[2018-05-04] MEDS: ARIPiprazole 5 MG TABLET PO SCH (22:00)
[2018-05-04] MEDS: traZODone 50 MG TABLET PO PRN (22:01)
[2018-05-05] MEDS: Acetaminophen 325 MG TABLET PO PRN (04:05)
[2018-05-05] MEDS: hydrOXYzine pamoate 25 MG CAPSULE PO PRN (06:29)
[2018-05-05] MEDS: Nicotine 21 MG PATCH.TD24 TD SCH (09:12)
[2018-05-05] MEDS: (Aripiprazole [Abilify Maintena] 400 MG) IM SCH (12:38)
--- NOTE | 2018-05-05 13:35 | Psychiatry Progress Note ---
Date of Encounter: 05/05/18 Time of Encounter: 12:45 Subjective Interval history: ID: Patient is a 37-year-old female. Chief complaint I would like to go home today so that I can make breakfast for my daughter in the morning History of present illness. The patient had not slept only 3 hours. She denied most side effects she has been intrusive. The patient has a history of noncompliance with oral medicines. Yesterday the patient received Phenergan for migraine headache and later in the day I wrote for your set. The patient has a follow-up appointment on Wednesday with her neurologist. An other follow-up can be scheduled. 3 The patient is received Abilify maintena 400 mg per day. She is. She noted some injection site pain. The patient feels that she can control her self but her spouse is been certain about the patient's level of disorganization in disinhibition. The patient has requested marijuana. She was told of the [place] [employer] marijuana loss. The patient is reported migraine headaches and discussed her follow-up. The patient was told that the Abilify maintena would need to be given again in 4 weeks before Thanks. Review of Systems Psychiatric: Reports: depression, abnormal sleep pattern, mood swings, other (Manic episode) Results - Vital Signs Vital Signs: Temp Pulse Resp BP Pulse Ox 98.3 F 85 18 123/78 98 05/05/18 09:00 05/05/18 09:00 05/05/18 09:00 05/05/18 09:00 05/04/18 09:00 - Impressions ITS Impressions Chest X-Ray 05/02/18 11:32 IMPRESSION: No acute cardiopulmonary disease. D/ / Tyrone Osullivan MD / Tyrone Osullivan MD Interpreting Provider: Tyrone Osullivan MD Assessment and Plan (1) Migraine headache Current visit: Yes Status: Acute Plan: Other Risks, benefits, side effects, alternatives discussed w/pt: Yes Patient agreeable to treatment: Yes Qualifiers: Migraine type: abdominal Intractability: not intractable Qualified Code(s): G43.D0 - Abdominal migraine, not intractable (2) Chronic post-traumatic stress disorder (PTSD) Current visit: No Status: Acute Plan: Close observation, Suicide Precautions per unit protocol, Encourage participation in unit milieu Risks, benefits, side effects, alternatives discussed w/pt: Yes Patient agreeable to treatment: Yes (3) History of Domenic thyroiditis Current visit: No Status: Acute Plan: Close observation, Suicide Precautions per unit protocol, Encourage participation in unit milieu Risks, benefits, side effects, alternatives discussed w/pt: Yes Patient agreeable to treatment: Yes (4) 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 Current visit: Yes Status: Acute Plan: Continue hospitalization, Monitor appetite, Secure weapons, Family/Supportive other meeting Risks, benefits, side effects, alternatives discussed w/pt: Yes Patient agreeable to treatment: Yes (5) Patient's noncompliance with other medical treatment and regimen Current visit: Yes Status: Chronic Plan: Continue hospitalization, Close observation, Family/Supportive other meeting Risks, benefits, side effects, alternatives discussed w/pt: Yes Patient agreeable to treatment: Yes (6) Bipolar disorder, current episode depressed, severe, with psychotic features Current visit: Yes Status: Acute Plan: Continue hospitalization, Close observation, Monitor sleep, Monitor appetite Risks, benefits, side effects, alternatives discussed w/pt: Yes Patient agreeable to treatment: Yes Consult Discharge Plan - Plan Additional Instructions: Patient was given Abilify Maintena 400mg on 05/05/2018. The next dose of Abilify Maintena 400mg can be given between 05/26/2018 - 06/02/2018. Referrals: [facility] [Outside] - 05/13/18 10:30 am (The above appointment is with the nurseAmirah. You will also see Carmelita Truong for outpatient mental health counseling services on 05/17/2018 at 9:00AM. You will also see Charisma Contreras for outpatient psychiatric assessment and medication management services on 05/19/2018 at 9:20AM.) Dorene Baker D.O. [Non-Partnered Physician] - 05/09/18 2:30 pm (The above appointment is with Dr. Baker for neurology follow-up.) Steff Wren [Advanced Practice Nurse] - 05/10/18 12:00 pm (The above appointment is with Steff Wren CNP, at Primary Care within [facility]. This appointment is to establish you with a primary care provider. Please arrive 15 minutes early to complete paperwork. Please bring your insurance card, photo ID and list of current medications to your first appointment. The above appointment(s) re flects first availability. You may contact the office regularly to check for cancellations that may allow you to be seen sooner.) Psychiatry Exam - Constitutional Vitals: Temp Pulse Resp BP Pulse Ox 98.3 F 85 18 123/78 98 05/05/18 09:00 05/05/18 09:00 05/05/18 09:00 05/05/18 09:00 05/04/18 09:00 General appearance: age & developmentally appropriate, well-groomed, well- nourished - Musculoskeletal Gait: normal Station: relaxed Strength & Tone: normal for patient - Psychiatric Patient Orientation: Yes Person, Yes Time, Yes Place Level of alertness: Alert Behavior: restless, impulsive, talkative Psychomotor activity: Increased Eye Contact: Maintains Eye Contact Mood Description: Euphoric, Expansive, Irritable Affect description: congruent with mood, full range Speech Volume: Normal Speech pattern: normal rate, normal rhythm, normal tone, fluent, spontaneous, inappropriate to situation, excessive, pressured Language & Vocabulary: consistent with education Thought Process: Linear, Goal Oriented Thought Content: No Suicidal ideation, No Homicidal ideation, No Overt delusions Perceptual Disturbances: No Auditory hallucinations, No Visual hallucinations Attention Span Ability: Capable of Focused Attention Memory Description: Grossly Intact Patient Reliability: Questionable Historian Fund of knowledge: Yes abstraction ability, Yes aware of current events Intelligence Estimate: Average Judgment: Fair Insight: Partial
[2018-05-05] MEDS: Acetaminophen/Butalbital/CaffeineTABLET PO PRN (18:20)
[2018-05-05] MEDS: *HR* LORazepam 1 MG TABLET PO PRN (21:34)
[2018-05-05] MEDS: ARIPiprazole 5 MG TABLET PO SCH (21:34)
--- NOTE | 2018-05-06 09:19 | Discharge Summary ---
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 Priority: Secondary Status: Acute (5) Patient's noncompliance with other medical treatment and regimen Priority: Secondary Status: Chronic (6) Bipolar disorder, current episode depressed, severe, with psychotic features Priority: Primary Status: Acute Medications - Discharge Medications Prescriptions: Acetaminophen/Butalbital/Caffe [Fioricet] 1 each PO Q8HR PRN 7 Days #7 tablet PRN Reason: Headache Promethazine [Phenergan] 12.5 mg PO Q8HR PRN 10 Days #10 tablet PRN Reason: Nausea And Vomiting Aripiprazole [Abilify Maintena] 400 mg IM ONCE 28 Days #1 suser.syr ARIPiprazole [Abilify] 5 mg PO HS 30 Days #30 tablet Benzocaine/Menthol Asiya [Cepacol Sore Throat Lozenge] 2 each MM Q2H PRN 7 Days #14 lozenge PRN Reason: Sore Throat Quetiapine Fumarate [Seroquel] 200 mg PO HS 30 Days #30 tablet ARIPiprazole [Abilify] 5 mg PO HS 30 Days #30 tablet 05/06/18 [Rx] Acetaminophen/Butalbital/Caffe [Fioricet] 1 each PO Q8HR PRN 7 Days #7 tablet 05/06/18 [Rx] Aripiprazole [Abilify Maintena] 400 mg IM ONCE 28 Days #1 suser.syr 05/06/18 [Rx] Benzocaine/Menthol Asiya [Cepacol Sore Throat Lozenge] 2 each MM Q2H PRN 7 Days #14 lozenge 05/06/18 [Rx] Promethazine [Phenergan] 12.5 mg PO Q8HR PRN 10 Days #10 tablet 05/06/18 [Rx] Quetiapine Fumarate [Seroquel] 200 mg PO HS 30 Days #30 tablet 05/06/18 [Rx] Allergy/AdvReac Type Severity Reaction Status Date / Time No Known Allergies Allergy Verified 04/29/18 18:54 Results Procedures and tests throughout hospitalization: Completed Lab Orders Category Date Time Status Acetaminophen Stat Lab 04/30/18 15:21 Completed BMP [Basic Metabolic Panel] Stat Lab 05/02/18 16:09 Completed Basic Metabolic Panel Stat Lab 04/30/18 15:21 Completed CBC [Complete Blood Count] [HEME] Routine Lab 05/02/18 13:23 Completed Complete Blood Count [HEME] Stat Lab 04/30/18 14:14 Completed D-Dimer [COAG] Routine Lab 05/02/18 13:23 Completed Ethanol Stat Lab 04/30/18 15:21 Completed Salicylate Stat Lab 04/30/18 15:21 Completed Thyroid Stimulating Hormone Stat Lab 04/30/18 15:21 Completed Troponin I Routine Lab 05/01/18 23:30 Completed Completed Imaging Orders Category Date Time Status XR chest 2V [XR] Stat Exams 05/02/18 11:32 Completed Provider Date of admission: 05/01/18 09:02 Primary care physician: PCP NONE Consults: 05/01/18 10:21 Consult to Neurology [CONS] Routine Consulting Provider: [facility] Reason for Consult: Pt has a history of Hosimoto's encephalopathy, needing medication recommendations. Time Notified: 10:22 Call Completed: No 05/01/18 17:23 Consult to Hospitalist [CONS] Stat Consulting Provider: Hospitalist Prashanth Reason for Consult: chest pain, with pain radiating down left arm. Pt vital signs @ 1645 B/P 111/77, @ 1708 113/75 heart rate is 85 both times. Time Notified: 17:27 Call Completed: No Discharging clinician: Andrew Saleh Psychiatry Exam - Constitutional Vitals: Temp Pulse Resp BP Pulse Ox 98.0 F 76 18 117/78 98 05/05/18 20:15 05/05/18 20:15 05/05/18 20:15 05/05/18 20:15 05/04/18 09:00 General appearance: age & developmentally appropriate, well-groomed, well- nourished - Musculoskeletal Gait: normal Station: relaxed Strength & Tone: normal for patient - Psychiatric Patient Orientation: Yes Person, Yes Time, Yes Place Level of alertness: Alert Behavior: calm, cooperative Psychomotor activity: Increased Eye Contact: Maintains Eye Contact Mood Description: Expansive, Labile Affect description: congruent with mood, full range Speech Volume: Normal Speech pattern: normal rate, normal rhythm, normal tone, fluent, spontaneous Language & Vocabulary: consistent with education Thought Process: Linear, Goal Oriented Thought Content: No Suicidal ideation, No Homicidal ideation, No Overt delusions, Yes Grandiose delusion Perceptual Disturbances: No Auditory hallucinations, No Visual hallucinations Attention Span Ability: Capable of Focused Attention Memory Description: Grossly Intact Patient Reliability: Questionable Historian Fund of knowledge: Yes abstraction ability, Yes average Intelligence Estimate: Average Judgment: Fair Insight: Partial Hospital Course Hospital course: Ms. Li is a 37 year old female The patient was admitted for a variety of conditions. The patient's primary and predominant condition was bipolar disorder manic severe with psychosis. Nonetheless her presentation included a variety of other diagnoses. These include posttraumatic stress disorder. Migraine headache. At history of Domenic's encephalopathy. History of seizures. While mood stabilizers could be considered the patient had a seizure disorder and has a history of noncompliance. For this reason the long-acting form of aripiprazole was chosen the patient and tolerated oral aripiprazole did not have significant side effects and on the day prior to discharge tolerated the long- acting formulation of aripiprazole. The patient continued to have manic symptoms distractibility some insomnia grandiosity flight of ideas excessive activities and intrusiveness excessive talking speech aunts some impulsivity and discussion or blurting things out. Nonetheless the patient improved overall in these veins. The patient had migraines and most days required Phenergan Cepacol lozenge for irritated throat and Fioricet. The patient's treatment was discussed with next of kin frequently during the hospital stay. A letter was prepared to be sent to the follow-up appointments. The reader is referred to this letter and progress notes. She tolerated the treatment without significant side effects. Does patient wish to continue nicotine replacement upon disc: No - Time Spent with Patient Total time spent providing and/or coordinating discharge services: Less than 30 minutes Assessment and Plan - Patient/Caregiver Discharge Instructions Activity: increase activity as tolerated Diet: regular diet Additional Instructions: Patient was given Abilify Maintena 400mg on 05/05/2018. The next dose of Abilify Maintena 400mg can be given between 05/26/2018 - 06/02/2018. - Follow up Plan Follow up with: [facility] [Outside] - 05/13/18 10:30 am (The above appointment is with the nurse, Amirah. You will also see Carmelita Truong for outpatient mental health counseling services on 05/17/2018 at 9:00AM. You will also see Charisma Contreras for outpatient psychiatric assessment and medication management services on 05/19/2018 at 9:20AM.) Dorene Baker D.O. [Non-Partnered Physician] - 05/09/18 2:30 pm (The above appointment is with Dr. Baker for neurology follow-up.) Steff Wren [Advanced Practice Nurse] - 05/10/18 12:00 pm (The above appointment is with Steff Wren CNP, at [facility]. This appointment is to establish you with a primary care provider. Please arrive 15 minutes early to complete paperwork. Please bring your insurance card, photo ID and list of current medications to your first appointment. The above appointment(s) reflects first availability. You may contact the office regularly to check for cancellations that may allow you to be seen sooner.) Functional capacity at discharge: independent ambulation Overall status at discharge: patient is back to baseline Disposition: Home, Self-Care Quality - Multiple Antipsychotics Patient discharged on 2 or more antipsychotic medications: No - Justification Documentation of: Other justification (see letter to providers) Procedures - Procedures Procedures: Medication Management, Crisis Stabilization, Supportive Therapy, Group Therapy, Psychoeducational Therapy
[2018-05-06] MEDS: Nicotine 21 MG PATCH.TD24 TD SCH (09:35)
[2018-05-06 10:17] VITALS: BP 108/76
[2018-05-06] MEDS: (Aripiprazole [Abilify Maintena] 400 MG) IM SCH (12:41)
[2018-05-06] MEDS: Acetaminophen/Butalbital/CaffeineTABLET PO PRN (14:15)
--- NOTE | 2018-05-06 15:47 | Electrocardiograph Report ---
[place] [id number] Test Date: 2018-05-02 Pat Name: Rufus Li Department: 113 Room: 1A21 Gender: F Vehicle Check In Clerk: : 1980 Requested By: Oliver Woodall Order Number: [id number] Reading MD: Alexandr Garza Measurements Intervals Jenkins Rate: 71 P: 63 LA: 130 QRS: 71 QRSD: 91 T: 56 QT: 401 QTc: 423 Interpretive Statements SINUS RHYTHM Electronically Signed On 05-06-2018 15:45:52 EDT by Alexandr Garza
== END 2018-05-06 15:00 | disposition home or self-care (01) | DRG 885 ==
LOC: EMEROOARM 13:43 → 1ANU 13:43 → SUATTDRO 05-01 09:02
PROVIDERS: ADMIT Psychiatry & Neurology Psychiatry; ATTEND Psychiatry & Neurology Forensic Psychiatry